=== PATIENT | female | born 1945 | race Caucasian/White ===

== ENCOUNTER → 2019-04-27 | Outpatient (CLI) | payer MEDICARE ==
[~2019-04-27] MED LIST: ALPR0.25 PO; ASPIRIN PO; ESTR0.5T PO; LISI-170 PO
[2019-04-27 10:48] LABS: MICROSCOPIC NOT IND
[2019-04-27 10:51] LABS: BASOPHILS # (AUTO) 0.02 x10^3/uL (0-0.1); BASOPHILS % (AUTO) 0 % (0-1); EOSINOPHILS # (AUTO) 0.35 x10^3/uL (0-0.4); EOSINOPHILS % (AUTO) 6 % (1-7); LYMPHOCYTES # (AUTO) 2.06 x10^3/uL (1-3.4); LYMPHOCYTES % (AUTO) 34 % (22-44); MD NO; MEAN CORPUSCULAR HEMOGLOBIN 27.4 pg (27.0-34.8); MEAN CORPUSCULAR HGB CONC 32.1 g/dL (32.4-35.8); MEAN CORPUSCULAR VOLUME 85.5 fL (80-100); MEAN PLATELET VOLUME 8.6 fL (7.4-10.4); MONOCYTES % (AUTO) 7 % (2-9); NEUTROPHILS # (AUTO) 3.27 x10^3/uL (1.8-6.8); NEUTROPHILS % (AUTO) 54 % (42-75); PLATELET COUNT 262 x10^3/uL (130-400); RED BLOOD COUNT 4.99 x10^6/uL (3.82-5.3); RED CELL DISTRIBUTION WIDTH 13.2 % (9.6-15.2)
[2019-04-27 10:59] LABS: ALANINE AMINOTRANSFERASE 21 U/L (12-78); ALBUMIN 3.5 g/dL (3.4-5.0); ANION GAP 6 mmol/L (5-15); CALCIUM 9.4 mg/dL (8.5-10.1); CHLORIDE 108 mmol/L (98-107); CREATININE 1.03 mg/dL (0.55-1.02)
[2019-04-27 11:01] LABS: ALKALINE PHOSPHATASE 75 U/L (45-117); BILIRUBIN,TOTAL 0.4 mg/dL (0.2-1.0); INTERNATIONAL NORMALIZED RATIO 0.9 (0.93-1.1); PROTHROMBIN TIME 9.5 Seconds (9.6-11.5); TOTAL PROTEIN 7.1 g/dL (6.4-8.2)
[2019-04-27 11:09] LABS: CULTURE INDICATED? NO
== END | disposition home or self-care (01) ==
LOC: STAR 09:52
PROVIDERS: ATTEND Neurological Surgery
DX: Z01.818 Encounter for other preprocedural examination (principal); M51.36 Other intervertebral disc degeneration, lumbar region; M48.061 Spinal stenosis, lumbar region without neurogenic claudication; M43.5X6 Other recurrent vertebral dislocation, lumbar region; M47.817 Spondylosis without myelopathy or radiculopathy, lumbosacral region; M41.86 Other forms of scoliosis, lumbar region; I25.2 Old myocardial infarction
CPT/HCPCS: 36415; 72110; 80053; 81003; 85025; 85610; 85730; 93005

== ENCOUNTER 2019-05-11 10:27 | Day surgery (SDC) | payer MEDICARE ==
[~2019-05-11] VITALS: Ht 165.1 cm; Wt 105.1 kg
[~2019-05-11 10:27] MED LIST changes: +BACITRACIN 50,000 UNIT ONE; +BUPIVACAINE/PF 0.5% ONE; +EPINEPHRINE 1 MG/ML, 1ML ONE; +VANCOMYCIN 1,000 MG ONE
[2019-05-11] MEDS ORDERED: LACTATED RINGERS 1,000 ML IV SCH (10:44)
[2019-05-11 10:53] VITALS: BP 140/90
[2019-05-11] MEDS ORDERED: ACETAMINOPHEN 500 MG TABLET PO ONE (11:00)
[2019-05-11] MEDS ORDERED: SODIUM CHLORIDE 0.9% 1,000 ML IV SCH (11:16)
[2019-05-11] MEDS ORDERED: LIDOCAINE-MPF 1%, 2ML INFIL ONE (11:30)
[2019-05-11] MEDS ORDERED: FENTANYL PF 250 MCG/5ML ONE (12:25)
[2019-05-11] MEDS ORDERED: PHENYLEPHRINE 10 MG/ML ONE (13:04)
[2019-05-11] MEDS ORDERED: BUPIVACAINE/PF 0.5% INFIL ONE (13:41)
[2019-05-11] MEDS ORDERED: ALBUTEROL/IPRATROPIUM 2.5MG/0.5MG, 3 ML NPPB PRN (14:00)
[2019-05-11] MEDS ORDERED: METOPROLOL 1 MG/ML, 5ML IV PRN (14:00)
[2019-05-11] MEDS ORDERED: OXYcodone 5 MG/5 ML ORAL.SOL UDC PO PRN (14:00)
[2019-05-11] MEDS ORDERED: hydrALAzine 20 MG/ML, 1ML IV PRN (14:00)
[2019-05-11] MEDS ORDERED: PROMETHAZINE 25 MG/ML, 1ML IV PRN (14:00)
[2019-05-11] MEDS ORDERED: MIDAZOLAM 1 MG/ML, 2ML IV PRN (14:00)
[2019-05-11] MEDS ORDERED: MEPERIDINE/PF 25MG/ML,1ML IVPush PRN (14:00)
[2019-05-11] MEDS ORDERED: PROPOFOL 10 MG/ML, 20ML ONE (14:11)
[2019-05-11] MEDS ORDERED: ROCURONIUM 10MG/ML,5ML ONE (14:11)
[2019-05-11] MEDS ORDERED: CEFAZOLIN 1,000 MG ONE (14:11)
[2019-05-11] MEDS ORDERED: GLYCOPYRROLATE 0.2MG/1ML, 5ML ONE (14:11)
[2019-05-11] MEDS ORDERED: ONDANSETRON 2MG/ML, 2ML ONE (14:11)
[2019-05-11] MEDS ORDERED: NEOSTIGMINE 1 MG/ML, 10ML ONE (14:11)
[2019-05-11] MEDS ORDERED: DEXAMETHASONE 4 MG/ML, 1ML ONE (14:11)
[2019-05-11] MEDS ORDERED: FENTANYL PF 100 MCG/2ML ONE (14:29)
[2019-05-11] MEDS: FENTANYL PF 100 MCG/2ML IV PRN ×2 (14:30→14:35)
[2019-05-11] MEDS ORDERED: OXYcodone 5 MG/5 ML ORAL.SOL UDC ONE (14:30)
[2019-05-11] MEDS ORDERED: HYDROmorphone 1 MG/ML, 1ML INJ ONE (14:48)
[2019-05-11] MEDS: HYDROmorphone 2 MG/ML, 1ML IVPush PRN ×2 (14:50→15:05)
[2019-05-11] MEDS ORDERED: CYCLOBENZAPRINE 10 MG TABLET ONE (15:13)
[2019-05-11] MEDS ORDERED: CYCLOBENZAPRINE 10 MG TABLET PO PRN (15:30)
[2019-05-11 16:45] VITALS: BP 118/75
[2019-05-11] MEDS ORDERED: DIPHENHYDRAMINE 50 MG/ML, 1ML IVPush SCH (17:00)
[2019-05-11] MEDS ORDERED: morphine SULFATE 10 MG/ML, 1ML IV PRN (17:00)
[2019-05-11] MEDS ORDERED: HYDROcodone/APAP 10/325 MG TABLET PO PRN (17:00)
[2019-05-11] MEDS ORDERED: ONDANSETRON 2MG/ML, 2ML IV PRN (17:00)
[2019-05-11] MEDS ORDERED: MAGNESIUM HYDROXIDE 8%, 30ML UDC PO PRN (17:00)
[2019-05-11] MEDS ORDERED: BISACODYL 10 MG SUPP PR PRN (17:00)
[2019-05-11] MEDS ORDERED: DIPHENHYDRAMINE 50 MG/ML, 1ML IVPush PRN (17:30)
[2019-05-11 19:24] VITALS: BP 127/86
[2019-05-11] MEDS: OXYcodone/APAP 10/325MG TABLET PO PRN ×2 (19:55→20:31)
[2019-05-11] MEDS: NS + 20MEQ KCL 1,000 ML IV SCH (21:00)
[2019-05-11] MEDS: CEFAZOLIN PMX 1GM/50ML 50 ML IVPB SCH (21:52)
[2019-05-11 23:38] VITALS: BP 116/79
[2019-05-12] MEDS: OXYcodone/APAP 10/325MG TABLET PO PRN (02:59)
[2019-05-12 03:14] VITALS: BP 111/75
[2019-05-12] MEDS: CEFAZOLIN PMX 1GM/50ML 50 ML IVPB SCH (06:00)
[2019-05-12] MEDS: NS + 20MEQ KCL 1,000 ML IV SCH (06:04)
[2019-05-12 08:11] VITALS: BP 114/72
[2019-05-12] MEDS ORDERED: OXYC-432 PO (08:57)
[2019-05-12] MEDS ORDERED: CYCL-259 PO (08:57)
[2019-05-12] MEDS ORDERED: ESTRADIOL 0.5 MG TABLET PO SCH (09:00)
[2019-05-12] MEDS ORDERED: SENNA/DOCUSATE TABLET PO SCH (09:00)
[2019-05-12] MEDS ORDERED: LISINOPRIL 5 MG TABLET PO SCH (09:00)
[2019-05-12 13:17] VITALS: BP 108/64
[2019-05-12 13:47] VITALS: BP 103/65
== END 2019-05-12 14:36 | disposition home or self-care (01) ==
LOC: OUT 10:27 → 4NE 16:12 → UNDOADMIN 16:37 → 4NE 16:37 → OUT 16:37 → DCLOUNGE 05-12 14:16 → 4NE 05-12 14:16 → UNDODISIN 05-12 14:36 → OUT 05-12 14:36
PROVIDERS: ATTEND Neurological Surgery
DX: M48.062 Spinal stenosis, lumbar region with neurogenic claudication (principal); M48.07 Spinal stenosis, lumbosacral region; M43.16 Spondylolisthesis, lumbar region; M54.16 Radiculopathy, lumbar region; N18.3 Chronic kidney disease, stage 3 (moderate); K21.9 Gastro-esophageal reflux disease without esophagitis; M79.7 Fibromyalgia; Z79.82 Long term (current) use of aspirin; Z79.899 Other long term (current) drug therapy; Z88.1 Allergy status to other antibiotic agents; Z88.0 Allergy status to penicillin; Z88.8 Allergy status to other drugs, medicaments and biological substances; Z90.710 Acquired absence of both cervix and uterus; Z98.890 Other specified postprocedural states; Z83.3 Family history of diabetes mellitus; Z82.49 Family history of ischemic heart disease and other diseases of the circulatory system; Z80.9 Family history of malignant neoplasm, unspecified
CPT/HCPCS: 63047; 63048; 72100; 97161; 97165; J0171; J0690; J1100; J1170; J2370; J2405; J2704; J2710; J3010; J3480; G0378; J3370